=== PATIENT | female | born 1990 | race Two or more races ===

== ENCOUNTER 2017-08-04 16:34 | Emergency (ER) | payer SELFPAY ==
[2017-08-04 16:45] VITALS: BP 106/59
--- NOTE | 2017-08-04 16:52 | ER Document Report ---
ED Medical Screen (RME) - General Chief Complaint: Vaginal Bleeding Stated Complaint: VAGINAL BLEEDING Time Seen by Provider: 08/04/17 16:47 Mode of Arrival: Ambulatory Information source: Patient TRAVEL OUTSIDE OF THE [place] IN LAST 30 DAYS: No - HPI Patient complains to provider of: , vaginal bleeding Notes: 08/04/17 16:51 Patient is a 26-year-old female who is with 2 elective abortions previously, presenting to the emergency room today complaining of vaginal bleeding that started out as spotting this morning, and is now much heavier with cramping, she reports a positive test approximately 1 week ago with an LMP of 06/03/2017, which would put her at about 8 weeks and 6 days, she has not yet received care - Related Data Allergies/Adverse Reactions: No Known Allergies Allergy (Verified 08/04/17 16:44) Past Medical History Renal/ Medical History: Denies: Hx Peritoneal Dialysis Physical Exam - Vital signs Vitals: Temp Pulse Resp BP Pulse Ox 99.1 F 58 L 16 106/59 L 100 08/04/17 16:42 08/04/17 16:42 08/04/17 16:42 08/04/17 16:42 08/04/17 16:42 Course - Vital Signs Vital signs: Temp Pulse Resp BP Pulse Ox 99.1 F 58 L 16 106/59 L 100 08/04/17 16:42 08/04/17 16:42 08/04/17 16:42 08/04/17 16:42 08/04/17 16:42
[2017-08-04 17:26] LABS: APPEARANCE,URINE SLIGHTLY-CLOUDY; BILIRUBIN,URINE NEGATIVE (NEGATIVE); GLUCOSE, URINE NEGATIVE (NEGATIVE); KETONES,URINE NEGATIVE (NEGATIVE); LEUKOCYTE ESTERASE,URINE SMALL (NEGATIVE); NITRITE,URINE NEGATIVE (NEGATIVE); PROTEIN,URINE 100 mg/dL (NEGATIVE); URINE SPECIFIC GRAVITY 1.025; UROBILINOGEN,URINE NEGATIVE mg/dL (<2.0)
[2017-08-04 17:37] LABS: ALANINE AMINOTRANSFERASE 27 U/L (9-52); ALBUMIN 4.2 g/dL (3.5-5.0); ALKALINE PHOSPHATASE 54 U/L (38-126); ANION GAP 11 (5-19); ASPARTATE AMINO TRANSFERASE 14 U/L (14-36); BILIRUBIN,DIRECT 0.3 mg/dL (0.0-0.4); BILIRUBIN,TOTAL 0.3 mg/dL (0.2-1.3); BLOOD UREA NITROGEN 10 mg/dL (7-20); CALCIUM 9.5 mg/dL (8.4-10.2); CARBON DIOXIDE 25 mmol/L (22-30); CHLORIDE 104 mmol/L (98-107); CREATININE RESULT 0.73 mg/dL (0.52-1.25); GLUCOSE 84 mg/dL (75-110); SODIUM 140.2 mmol/L (137-145); TOTAL PROTEIN 7.1 g/dL (6.3-8.2)
--- NOTE | 2017-08-04 18:05 | ER Document Report ---
ED GI/ - General Mode of Arrival: Ambulatory Information source: Patient TRAVEL OUTSIDE OF THE [place] IN LAST 30 DAYS: No - HPI Similar symptoms previously: Yes <SWETA CEBALLOS - Last Filed: 08/04/17 19:14> <REYNALDO SALAZAR - Last Filed: 08/04/17 22:22> - General Chief Complaint: Vaginal Bleeding Stated Complaint: VAGINAL BLEEDING Time Seen by Provider: 08/04/17 16:47 Notes: Patient is a 26-year-old female who presents to the emergency department today with complaints of a possible miscarriage. Patient states her last menstrual period was June 03 and she has not been seen for care yet. Patient states she has had a miscarriage in the past but this is not similar because she does not have as much pain today as she did with her previous miscarriage. Patient states she has had vaginal bleeding and mild abdominal cramping today. ( SWETA CEBALLOS) - Related Data Allergies/Adverse Reactions: No Known Allergies Allergy (Verified 08/04/17 16:44) Past Medical History - General Information source: Patient Last Menstrual Period: June 03 - Social History Smoking Status: Current Some Day Smoker Cigarette use (# per day): Yes Chew tobacco use (# tins/day): No Frequency of alcohol use: Occasional Drug Abuse: Marijuana Lives with: Family Family History: Reviewed & Not Pertinent - Medical History Medical History: Negative Past Surgical History: Reports: Hx Cholecystectomy <SWETA CEBALLOS - Last Filed: 08/04/17 19:14> Review of Systems - Review of Systems Constitutional: No symptoms reported EENT: No symptoms reported Cardiovascular: No symptoms reported Respiratory: No symptoms reported Gastrointestinal: No symptoms reported Genitourinary: No symptoms reported Female Genitourinary: See HPI, - ?, Vaginal bleeding, Other - cramping Musculoskeletal: No symptoms reported Skin: No symptoms reported Hematologic/Lymphatic: No symptoms reported Neurological/Psychological: No symptoms reported -: Yes All other systems reviewed and negative <SWETA CEBALLOS - Last Filed: 08/04/17 19:14> Physical Exam <SWETA CEBALLOS - Last Filed: 08/04/17 19:14> - Vital signs Interpretation: Normal - General General appearance: Appears well, Alert - HEENT Head: Normocephalic, Atraumatic Eyes: Normal Pupils: PERRL - Respiratory Respiratory status: No respiratory distress Chest status: Nontender Breath sounds: Normal Chest palpation: Normal - Cardiovascular Rhythm: Regular Heart sounds: Normal auscultation Murmur: No - Abdominal Inspection: Normal Distension: No distension Bowel sounds: Normal Tenderness: Nontender Organomegaly: No organomegaly - Back Back: Normal, Nontender - Extremities General upper extremity: Normal inspection, Nontender, Normal color, Normal ROM , Normal temperature General lower extremity: Normal inspection, Nontender, Normal color, Normal ROM , Normal temperature, Normal weight bearing. No: Bernadine's sign - Neurological Neuro grossly intact: Yes Cognition: Normal Orientation: AAOx4 Amelia Coma Scale Eye Opening: Spontaneous Amelia Coma Scale Verbal: Oriented Amelia Coma Scale Motor: Obeys Commands Amelia Coma Scale Total: 15 Speech: Normal Motor strength normal: LUE, RUE, LLE, RLE Sensory: Normal - Psychological Associated symptoms: Normal affect, Normal mood - Skin Skin Temperature: Warm Skin Moisture: Dry Skin Color: Normal <REYNALDO SALAZAR - Last Filed: 08/04/17 22:22> - Vital signs Vitals: Temp Pulse Resp BP Pulse Ox 99.1 F 58 L 16 106/59 L 100 08/04/17 16:42 08/04/17 16:42 08/04/17 16:42 08/04/17 16:42 08/04/17 16:42 - Genitourinary Notes: deferred to kiln operator helper per patient. (REYNALDO SALAZAR) Course - Laboratory Result Diagrams: 08/04/17 17:45 08/04/17 17:00 <SWETA CEBALLOS - Last Filed: 08/04/17 19:14> - Laboratory Result Diagrams: 08/04/17 17:45 08/04/17 17:00 - Diagnostic Test Radiology reviewed: Reports reviewed <REYNALDO SALAZAR - Last Filed: 08/04/17 22:22> - Re-evaluation Re-evalutation: 08/04/17 Patient is a 26-year-old female who comes in with vaginal bleeding. Patient is not having bleeding at this time or cramping. HCG quantitative is inconclusive as is the ultrasound. Patient is instructed to follow-up with her WET PROCESS TECHNICIAN for repeat blood and ultrasound. . No evidence for ectopic at this time. No pain cramping or bleeding currently. Stable for discharge. Return if any worsening or recurrent symptoms. Understands and agrees with plan. (REYNALDO SALAZAR) - Vital Signs Vital signs: Temp Pulse Resp BP Pulse Ox 99.1 F 58 L 16 106/59 L 100 08/04/17 16:42 08/04/17 16:42 08/04/17 16:42 08/04/17 16:42 08/04/17 16:42 - Laboratory Laboratory results interpreted by me: 08/04/17 08/04/17 16:50 17:00 Beta HCG, Quant 1717.50 H Urine Protein 100 H Urine Blood LARGE H Ur Leukocyte Esterase SMALL H Urine Ascorbic Acid 20 H Discharge <SWETA CEBALLOS - Last Filed: 08/04/17 19:14> <REYNALDO SALAZAR - Last Filed: 08/04/17 22:22> - Discharge Clinical Impression: Vaginal bleeding in Condition: Stable Disposition: HOME, SELF-CARE Instructions: Miscarriage ([facility]) Additional Instructions: Please follow-up with your WET PROCESS TECHNICIAN this week. Scribe Attestation: 08/04/17 22:22 I personally performed the services described in the documentation, reviewed and edited the documentation which was dictated to the scribe in my presence, and it accurately records my words and actions. (REYNALDO SALAZAR) Scribe Documentation - Scribe Written by Jarod:: Jarod Graham, 08/04/2017 1917 acting as scribe for :: Gato <SWETA CEBALLOS - Last Filed: 08/04/17 19:14>
[2017-08-04 18:23] LABS: ABSOLUTE BASOPHILS # (AUTO) 0.1 10^3/uL (0.0-0.2); ABSOLUTE LYMPHOCYTES (AUTO) 2.1 10^3/uL (0.5-4.7); ABSOLUTE MONOCYTES (AUTO) 0.5 10^3/uL (0.1-1.4); ABSOLUTE NEUT (AUTO) 5.2 10^3/uL (1.7-8.2); BASOPHILS % (AUTO) 0.7 % (0-2); EOSINOPHILS % (AUTO) 0.4 % (0-6); HEMATOCRIT 38.3 % (36.0-47.0); HEMOGLOBIN 13.3 g/dL (12.0-15.5); HGB HCT DIFFERENCE 1.6; LYMPHOCYTES % (AUTO) 26.4 % (13-45); MEAN CORPUSCULAR HEMOGLOBIN 31.6 pg (27.0-33.4); MEAN CORPUSCULAR HGB CONC 34.7 g/dL (32.0-36.0); MEAN CORPUSCULAR VOLUME 91 fl (80-97); MONOCYTES % (AUTO) 6.6 % (3-13); RED BLOOD COUNT 4.21 10^6/uL (3.72-5.28); RED CELL DISTRIBUTION WIDTH 13.3 % (11.5-14.0); SEGMENTED NEUTROPHILS % (AUTO) 65.9 % (42-78); WHITE BLOOD COUNT 7.8 10^3/uL (4.0-10.5)
--- NOTE | 2017-08-04 19:25 | RADIOLOGY REPORT (SQ) ---
EXAM DESCRIPTION: U/S OB TRANSVAG W/DOPPLER COMPLETED DATE/TIME: 08/04/2017 7:03 pm REASON FOR STUDY: , vaginal bleeding COMPARISON: None. TECHNIQUE: Transvaginal static and realtime grayscale images acquired of the pelvis. Additional mike cted spectral and color Doppler images recorded. All images stored on PACs. BHC,997. LIMITATIONS: None. FINDINGS: UTERUS: No visualized intrauterine . RIGHT ADNEXA: Normal ovary with normal vascular flow. No adnexal free fluid. No adnexal masses. LEFT ADNEXA: Normal ovary with normal vascular flow. No adnexal free fluid. No adnexal masses. FREE FLUID: None. OTHER: No other significant finding. IMPRESSION: NO VISUALIZED INTRA- OR EXTRAUTERINE . bHCG LEVEL TOO LOW TO EXPECT VISUALIZATION OF . ECTOPIC CANNOT BE EXCLUDED. FOLLOW-UP ULTRASOUND AND SERIAL BHCG LEVELS STRONGLY RECOMMENDED TO ACCURATELY ASSESS STATU S. TECHNICAL DOCUMENTATION: JOB ID: [id number] [employer]- All Rights Reserved
== END 2017-08-04 19:45 | disposition home or self-care (01) ==
LOC: ER 16:34
DX: O46.90 Antepartum hemorrhage, unspecified, unspecified trimester (principal); R10.9 Unspecified abdominal pain; F17.210 Nicotine dependence, cigarettes, uncomplicated
CPT/HCPCS: 36415; 76817; 80053; 81001; 84702; 85025; 86900; 86901; 93976; 99284

== ENCOUNTER 2019-07-27 23:02 | Emergency (ER) | payer SELFPAY ==
[2019-07-28 00:26] LABS: ABSOLUTE EOSINOPHILS # (AUTO) 0.1 10^3/uL (0.0-0.6); ABSOLUTE LYMPHOCYTES (AUTO) 1.6 10^3/uL (0.5-4.7); ABSOLUTE MONOCYTES (AUTO) 0.6 10^3/uL (0.1-1.4); ABSOLUTE NEUT (AUTO) 2.3 10^3/uL (1.7-8.2); BASOPHILS % (AUTO) 0.6 % (0-2); EOSINOPHILS % (AUTO) 1.2 % (0-6); HEMATOCRIT 34.1 % (36.0-47.0); LYMPHOCYTES % (AUTO) 35.1 % (13-45); MEAN CORPUSCULAR HEMOGLOBIN 24.6 pg (27.0-33.4); MEAN CORPUSCULAR HGB CONC 32.2 g/dL (32.0-36.0); MEAN CORPUSCULAR VOLUME 77 fl (80-97); MONOCYTES % (AUTO) 12.5 % (3-13); PLATELET COUNT 358 10^3/uL (150-450); RED BLOOD COUNT 4.46 10^6/uL (3.72-5.28); RED CELL DISTRIBUTION WIDTH 18.9 % (11.5-14.0); SEGMENTED NEUTROPHILS % (AUTO) 50.6 % (42-78); TOTAL CELLS COUNTED % (AUTO) 100 %; WHITE BLOOD COUNT 4.6 10^3/uL (4.0-10.5)
[2019-07-28 00:35] LABS: APPEARANCE,URINE CLEAR; BILIRUBIN,URINE NEGATIVE (NEGATIVE); COLOR,URINE STRAW; GLUCOSE, URINE NEGATIVE (NEGATIVE); KETONES,URINE NEGATIVE (NEGATIVE); LEUKOCYTE ESTERASE,URINE NEGATIVE (NEGATIVE); NITRITE,URINE NEGATIVE (NEGATIVE); PROTEIN,URINE NEGATIVE (NEGATIVE); URINE SPECIFIC GRAVITY 1.008; UROBILINOGEN,URINE NEGATIVE mg/dL (<2.0)
[2019-07-28 00:52] LABS: ALBUMIN 4.5 g/dL (3.5-5.0); ALKALINE PHOSPHATASE 57 U/L (38-126); ANION GAP 9 (5-19); ASPARTATE AMINO TRANSFERASE 15 U/L (14-36); BILIRUBIN,DIRECT 0.2 mg/dL (0.0-0.4); BILIRUBIN,TOTAL 0.3 mg/dL (0.2-1.3); BLOOD UREA NITROGEN 9 mg/dL (7-20); CALCIUM 9.8 mg/dL (8.4-10.2); CARBON DIOXIDE 27 mmol/L (22-30); CHLORIDE 103 mmol/L (98-107); CREATINE KINASE 87 U/L (30-135); POTASSIUM 3.9 mmol/L (3.6-5.0)
[2019-07-28 01:15] LABS: CREATINE KINASE MB < 0.22 ng/mL (<4.55); TROPONIN I < 0.012 ng/mL
[2019-07-28 01:23] LABS: GLUCOSE 68 mg/dL (75-110)
[2019-07-28 02:22] VITALS: BP 125/68
== END 2019-07-28 02:51 | disposition left against medical advice (07) ==
LOC: ER 23:02
DX: Z53.21 Procedure and treatment not carried out due to patient leaving prior to being seen by health care provider (principal)
CPT/HCPCS: 36415; 80053; 81001; 82550; 82553; 82962; 84484; 85025

== ENCOUNTER 2020-01-09 22:12 | Emergency (ER) | payer SELFPAY ==
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
[2020-01-09 23:54] LABS: A TYPE INFLUENZA AG NEGATIVE (NEGATIVE); B INFLUENZA AG NEGATIVE (NEGATIVE)
[2020-01-10] MEDS ORDERED: AZITHROMYCIN 250 MG TABLET PO ONE (00:05)
--- NOTE | 2020-01-10 00:11 | ER Document Report ---
ED General - General Chief Complaint: Cough Stated Complaint: SHORTNESS OF BREATH Time Seen by Provider: 01/09/20 22:43 Mode of Arrival: Ambulatory Information source: Patient Notes: 29-year-old black female arrives with chief complaint of nonproductive cough and chest congestion and mild sore throat but no rhinorrhea and no sinus pressure. Patient denies any family members that are sick and denies any coworkers that are sick and has not around any sick children. TRAVEL OUTSIDE OF THE [place] IN LAST 30 DAYS: No - Related Data Allergies/Adverse Reactions: No Known Allergies Allergy (Verified 01/09/20 22:31) Past Medical History - General Information source: Patient - Social History Smoking Status: Former Smoker Cigarette use (# per day): No Chew tobacco use (# tins/day): No Smoking Education Provided: No Frequency of alcohol use: None Drug Abuse: Marijuana Lives with: Family Family History: Reviewed & Not Pertinent Patient has suicidal ideation: No Patient has homicidal ideation: No Renal/ Medical History: Denies: Hx Peritoneal Dialysis Past Surgical History: Reports: Hx Cholecystectomy Review of Systems - Review of Systems Constitutional: No symptoms reported EENT: See HPI, Throat pain Cardiovascular: No symptoms reported Respiratory: See HPI, Cough Gastrointestinal: No symptoms reported Genitourinary: No symptoms reported Female Genitourinary: No symptoms reported Musculoskeletal: No symptoms reported Skin: No symptoms reported Hematologic/Lymphatic: No symptoms reported Neurological/Psychological: No symptoms reported Physical Exam - Vital signs Vitals: Temp Pulse Resp BP Pulse Ox 98.8 F 85 16 112/56 L 100 01/09/20 22:19 01/09/20 22:19 01/09/20 22:19 01/09/20 22:19 01/09/20 22:19 Interpretation: Normal - HEENT Head: Normocephalic Eyes: Normal Conjunctiva: Normal Cornea: Normal Extraocular movements intact: Yes Eyelashes: Normal Sinus: Normal Nasal: Normal Mouth/Lips: Normal Mucous membranes: Normal Pharynx: Erythema Neck: Normal - Respiratory Respiratory status: No respiratory distress Chest status: Nontender Breath sounds: Normal Chest palpation: Normal - Cardiovascular Rhythm: Regular Heart sounds: Normal auscultation Murmur: No Friction rub: No Jose Enrique's crunch: No - Abdominal Inspection: Normal Distension: No distension Bowel sounds: Normal Tenderness: Nontender Organomegaly: No organomegaly - Back Back: Normal - Extremities General upper extremity: Normal inspection General lower extremity: Normal inspection - Neurological Neuro grossly intact: Yes Cognition: Normal Orientation: AAOx4 Amelia Coma Scale Eye Opening: Spontaneous [place] Coma Scale Verbal: Oriented [place] Coma Scale Motor: Obeys Commands Amelia Coma Scale Total: 15 Speech: Normal Cranial nerves: Normal Cerebellar coordination: Normal Motor strength normal: LUE, RUE, LLE, RLE - Psychological Associated symptoms: Normal affect - Skin Skin Temperature: Warm Skin Moisture: Dry Course - Vital Signs Vital signs: Temp Pulse Resp BP Pulse Ox 98.8 F 85 16 112/56 L 100 01/09/20 22:19 01/09/20 22:19 01/09/20 22:19 01/09/20 22:19 01/09/20 22:19 - Diagnostic Test Radiology reviewed: Reports reviewed Critical Care Note - Critical Care Note Total time excluding time spent on procedures (mins): 90 Comments: I advised patient of her chest x-ray results and negative influenza test. Also patient received Zithromax 500 p.o. and Rx for Hycodan Discharge - Discharge Clinical Impression: Bronchitis URI (upper respiratory infection) Qualifiers: URI type: unspecified viral URI Qualified Code(s): J06.9 - Acute upper respi ratory infection, unspecified Condition: Good Disposition: HOME, SELF-CARE Additional Instructions: Follow-up with personal doctor next week return to ER as needed if symptoms persist or worsen and take medicines as directed and encourage fluids like chamomile tea lemon juice honey Prescriptions: Hydrocodone Bit/Homatropine [Hycodan Syrup 5-1.5 mg/5 ml Ud Cup] 5 ml PO Q4HP PRN #120 ml PRN Reason: Hydrocodone Bit/Homatropine [Hycodan Syrup 5-1.5 mg/5 ml Ud Cup] 5 ml PO TID #120 ml Azithromycin [Zithromax 250 mg Tablet] 250 mg PO ASDIR PRN #6 tablet PRN Reason: Forms: Return to Work
[2020-01-10 00:46] VITALS: BP 118/62
== END 2020-01-10 00:44 | disposition home or self-care (01) ==
LOC: ER 22:12
DX: J06.9 Acute upper respiratory infection, unspecified (principal); J40 Bronchitis, not specified as acute or chronic; R05 Cough; R06.02 Shortness of breath; R09.89 Other specified symptoms and signs involving the circulatory and respiratory systems; Z87.891 Personal history of nicotine dependence
CPT/HCPCS: 71046; 87804

== ENCOUNTER 2020-11-23 14:54 | Emergency (ER) | payer SELFPAY ==
[2020-11-23 15:05] VITALS: BP 105/60
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
== END 2020-11-24 08:00 | disposition left against medical advice (07) ==
LOC: ER 14:54
DX: R58 Hemorrhage, not elsewhere classified (principal); L53.9 Erythematous condition, unspecified; R60.0 Localized edema; Z87.828 Personal history of other (healed) physical injury and trauma; Z90.2 Acquired absence of lung [part of]; Z53.20 Procedure and treatment not carried out because of patient's decision for unspecified reasons
CPT/HCPCS: 71046; 87070; 87205; 99281